=== PATIENT | female | born 1975 | race Caucasian/White ===

== ENCOUNTER → 2021-02-17 | Outpatient (CLI) | payer OTHER ==
[~2021-02-17] MED LIST: COVID-19 VACC, MRNA(MODERNA)/PF 100 MCG/0.5 ML VIAL IM ONE
== END ==
LOC: VACCPMC 13:36
DX: Z23 Encounter for immunization (principal); Z20.822 Contact with and (suspected) exposure to COVID-19
CPT/HCPCS: 91301

== ENCOUNTER → 2021-03-17 | Outpatient (CLI) | payer OTHER | END | disposition home or self-care (01) | LOC: VACCPMC 11:03 | DX: Z23 Encounter for immunization (principal); Z20.822 Contact with and (suspected) exposure to COVID-19 | CPT/HCPCS: 91301 ==

== ENCOUNTER 2022-04-24 08:00 | Outpatient (RCR) | payer BC, OTHER | END 2022-04-28 | LOC: PT 08:00 | PROVIDERS: ATTEND Internal Medicine | DX: I69.354 Hemiplegia and hemiparesis following cerebral infarction affecting left non-dominant side (principal); M62.81 Muscle weakness (generalized); R26.81 Unsteadiness on feet; Z91.81 History of falling; R29.3 Abnormal posture ==

== ENCOUNTER 2022-05-20 10:00 | Outpatient (RCR) | payer BC | END 2022-05-28 | LOC: OT 10:00 | PROVIDERS: ATTEND Internal Medicine | DX: I69.354 Hemiplegia and hemiparesis following cerebral infarction affecting left non-dominant side (principal); M62.81 Muscle weakness (generalized); R26.2 Difficulty in walking, not elsewhere classified; R29.3 Abnormal posture; Z91.81 History of falling | CPT/HCPCS: 97139 ==

== ENCOUNTER 2022-07-24 18:15 | Inpatient (IN) | payer BC ==
[~2022-07-24] VITALS: Ht 154.9 cm; Wt 85.3 kg
[2022-07-24] MEDS ORDERED: Morphine 2mg Syringe 2 MG/ML SYR IV NR (18:30)
[2022-07-24] MEDS ORDERED: DIPHTH/TETANUS/ACEL. PERTUSSIS 0.5 ML SYR IM ONE (18:30)
[2022-07-24] MEDS ORDERED: TETANUS/DIPHTHERIA TOX ADULT 0.5 ML SYR ONE (18:47)
[2022-07-24] MEDS ORDERED: ACETAMINOPHEN-1 EAC4 PO (19:49)
[2022-07-24] MEDS ORDERED: FENTANYL CITRATE/PF 100MCG/2 ML INJ IV ONE (20:00)
[2022-07-24] MEDS ORDERED: ONDANSETRON HCL INJ 2MG/ML 2ML 2 MG/ML VIAL ONE (20:14)
[2022-07-24] MEDS ORDERED: Morphine 4mg INJECTION 4 MG/ML INJ IV PRN (20:15)
[2022-07-24] MEDS ORDERED: ONDANSETRON HCL INJ 2MG/ML 2ML 2 MG/ML VIAL IV PRN (20:15)
[2022-07-24 21:01] LABS: BASOPHILS # (AUTO) 0.1 (0.0-0.1); BASOPHILS % 0.4 % (0.0-1.0); EOSINOPHILS % 0.2 % (0.0-6.0); HEMATOCRIT 38.8 % (34.2-44.1); HEMOGLOBIN 12.5 g/dL (12.0-16.0); MEAN CORPUSCULAR HEMOGLOBIN 29.4 pg (28-32); MEAN CORPUSCULAR HGB CONC 32.2 g/dL (31-35); MEAN CORPUSCULAR VOLUME 91.3 fL (81-99); MONOCYTES # (AUTO) 0.6 (0.2-0.8); MONOCYTES % 3.9 % (4.4-11.3); NEUTROPHILS # (AUTO) 14.3 (2.1-6.9); NEUTROPHILS % 88.8 % (38.7-80.0); PLATELET COUNT 178 x10e3/uL (140-360); RED BLOOD COUNT 4.25 x10e6/uL (3.6-5.1); RED CELL DISTRIBUTION WIDTH 12.5 % (11.7-14.4)
[2022-07-24 21:07] LABS: INR 0.88; PARTIAL THROMBOPLASTIN TIME 24.1 seconds (23.8-35.5); PROTHROMBIN TIME 12.8 seconds (11.9-14.5)
[2022-07-24 21:14] LABS: ANION GAP 18.6 mmol/L (8-16); CALCIUM 8.4 mg/dL (8.4-10.2); CREATININE, SERUM 0.74 mg/dL (0.57-1.11); POTASSIUM 3.6 mmol/L (3.5-5.1)
[2022-07-24] MEDS ORDERED: Morphine 4mg INJECTION 4 MG/ML INJ IV ONE (22:45)
[2022-07-24 22:50] VITALS: BP 136/87
[2022-07-24] MEDS ORDERED: APPLE CIDER VI600 MG PO (23:05)
[2022-07-24] MEDS ORDERED: VITAMIN D325 MCG PO (23:05)
[2022-07-24] MEDS ORDERED: COLLAGEN PEPTIDES PO (23:05)
[2022-07-24] MEDS ORDERED: PRISTIQ ER50 MG PO (23:05)
[2022-07-24] MEDS ORDERED: PROTONIX40 MG PO (23:05)
[2022-07-24] MEDS ORDERED: CARBAMAZEPINE200 MG PO (23:05)
[2022-07-24] MEDS ORDERED: BACLOFEN10 MG PO (23:05)
[2022-07-25] MEDS: HYDROMORPHONE 1MG/1ML INJ IV PRN ×7 (00:11→22:51)
[2022-07-25 04:00] VITALS: BP 146/99
[2022-07-25 08:30] LABS: BASOPHILS % 0.2 % (0.0-1.0); EOSINOPHILS % 0.4 % (0.0-6.0); HEMATOCRIT 38.9 % (34.2-44.1); HEMOGLOBIN 12.2 g/dL (12.0-16.0); LYMPHOCYTES # (AUTO) 1.4 (1.0-3.2); LYMPHOCYTES % 14.9 % (18.0-39.1); MEAN CORPUSCULAR HGB CONC 31.4 g/dL (31-35); MEAN CORPUSCULAR VOLUME 95.8 fL (81-99); MONOCYTES # (AUTO) 0.7 (0.2-0.8); MONOCYTES % 7.8 % (4.4-11.3); NEUTROPHILS % 76.6 % (38.7-80.0); PLATELET COUNT 310 x10e3/uL (140-360); RED BLOOD COUNT 4.06 x10e6/uL (3.6-5.1); RED CELL DISTRIBUTION WIDTH 12.5 % (11.7-14.4)
[2022-07-25 08:49] VITALS: BP 143/93
[2022-07-25 08:52] LABS: ALBUMIN 3.7 g/dL (3.5-5.0); ALBUMIN/GLOBULIN RATIO 0.9 (0.8-2.0); CALCIUM 9.1 mg/dL (8.4-10.2); CREATININE, SERUM 0.72 mg/dL (0.57-1.11)
[2022-07-25] MEDS: DESVENLAFAXINE SUCCINATE 50 MG TAB.SR.24H PO SCH ×2 (09:00→16:36)
[2022-07-25] MEDS: BACLOFEN 10 MG TAB PO SCH ×2 (09:00→16:37)
[2022-07-25] MEDS ORDERED: PANTOPRAZOLE SODIUM 40 MG SUSPDR.PKT PO SCH (09:00)
[2022-07-25] MEDS: CARBAMAZEPINE 200 MG TAB PO SCH ×2 (09:00→16:37)
[2022-07-25] MEDS ORDERED: AMLODIPINE PO (09:46)
[2022-07-25] MEDS ORDERED: [UNRECOGNIZED DRUG - OTHER] PO (09:46)
[2022-07-25] MEDS ORDERED: BENICAR20 MG PO (09:46)
[2022-07-25 12:02] VITALS: BP 126/95
[2022-07-25 15:30] VITALS: BP 140/88
[2022-07-25] MEDS: PANTOPRAZOLE SOD 40 MG TABEC PO SCH (16:37)
[2022-07-25 16:57] VITALS: BP 140/88
[2022-07-25 20:00] VITALS: BP 139/92
[2022-07-25] MEDS ORDERED: DEXTROSE 5%/0.45% SOD CHL 1,000 ML IV SCH (20:45)
[2022-07-26] VITALS (9 sets, daily range): BP systolic 110–160; BP diastolic 59–92
[2022-07-26] MEDS: HYDROMORPHONE 1MG/1ML INJ IV PRN ×2 (02:14→05:14)
[2022-07-26 04:52] LABS: BASOPHILS % 0.4 % (0.0-1.0); EOSINOPHILS # (AUTO) 0.1 (0.0-0.4); EOSINOPHILS % 1.8 % (0.0-6.0); HEMATOCRIT 38.7 % (34.2-44.1); HEMOGLOBIN 12.6 g/dL (12.0-16.0); LYMPHOCYTES # (AUTO) 1.3 (1.0-3.2); LYMPHOCYTES % 17.4 % (18.0-39.1); MEAN CORPUSCULAR HEMOGLOBIN 29.8 pg (28-32); MEAN CORPUSCULAR HGB CONC 32.6 g/dL (31-35); MEAN CORPUSCULAR VOLUME 91.5 fL (81-99); MONOCYTES # (AUTO) 0.6 (0.2-0.8); MONOCYTES % 8.7 % (4.4-11.3); NEUTROPHILS # (AUTO) 5.3 (2.1-6.9); NEUTROPHILS % 71.6 % (38.7-80.0); PLATELET COUNT 308 x10e3/uL (140-360); RED BLOOD COUNT 4.23 x10e6/uL (3.6-5.1); RED CELL DISTRIBUTION WIDTH 12.4 % (11.7-14.4)
[2022-07-26 05:12] LABS: ALBUMIN 3.6 g/dL (3.5-5.0); ALBUMIN/GLOBULIN RATIO 0.9 (0.8-2.0); ANION GAP 15.9 mmol/L (8-16); CALCIUM 8.8 mg/dL (8.4-10.2); CREATININE, SERUM 0.71 mg/dL (0.57-1.11); POTASSIUM 3.9 mmol/L (3.5-5.1)
[2022-07-26] MEDS: PANTOPRAZOLE SOD 40 MG TABEC PO SCH ×2 (09:00→17:05)
[2022-07-26] MEDS: BACLOFEN 10 MG TAB PO SCH ×2 (09:00→17:07)
[2022-07-26] MEDS: CARBAMAZEPINE 200 MG TAB PO SCH ×2 (09:00→17:08)
[2022-07-26] MEDS: DESVENLAFAXINE SUCCINATE 50 MG TAB.SR.24H PO SCH (09:00)
[2022-07-26] MEDS ORDERED: BUPIVACAINE HC 0.75% PF 10ML VIAL INJ ONE (09:13)
[2022-07-26] MEDS ORDERED: BUPIVACAINE HCL 0.25% 10ML MPF VIAL INJ ONE (09:15)
[2022-07-26] MEDS ORDERED: Vancomycin IV 500 MG ONE (09:56)
[2022-07-26] MEDS ORDERED: HYDROGEN PEROXIDE 120 ML BTL ONE (11:12)
[2022-07-26] MEDS ORDERED: Vancomycin IV 1 GM in SODIUM CHLORIDE 0.9% 250ML 250 ML IV ONE (11:30)
[2022-07-26] MEDS ORDERED: Morphine 4mg INJECTION 4 MG/ML INJ IV PRN (11:30)
[2022-07-26] MEDS ORDERED: KETOROLAC TROMETHAMINE 30 MG/ML VIAL ONE ×2 (11:46→13:44)
[2022-07-26] MEDS ORDERED: PROPOFOL IV EMULSION 10 MG/ML 20 ML VIAL ONE (13:44)
[2022-07-26] MEDS ORDERED: ONDANSETRON HCL INJ 2MG/ML 2ML 2 MG/ML VIAL ONE (13:44)
[2022-07-26] MEDS ORDERED: POVIDONE IODINE 0.05% 0.05 % ML PO ONE (13:44)
[2022-07-26] MEDS ORDERED: SEVOFLURANE INHAL SOLN 250 ML PEN BTL ONE (13:44)
[2022-07-26] MEDS ORDERED: DEXAMETHASONE SOD PHOS INJ 4 MG/ML SDV ONE (13:44)
[2022-07-26] MEDS ORDERED: ROCURONIUM BROMIDE 10 MG/ML 5ML VIAL IV ONE (13:44)
[2022-07-26] MEDS ORDERED: MIDAZOLAM HCL 2 MG/2 ML VIAL ONE (14:00)
[2022-07-26] MEDS ORDERED: Morphine 10mg syringe 10 MG/ML INJ ONE (14:00)
[2022-07-26] MEDS ORDERED: FENTANYL CITRATE/PF 100MCG/2 ML INJ ONE (14:00)
[2022-07-26] MEDS ORDERED: ENOXAPARIN 30 MG/0.3 ML SYR SC SCH (17:00)
[2022-07-26] MEDS: HYDROCODONE/APAP 10MG-325MG TAB PO PRN (17:06)
[2022-07-26] MEDS: KETOROLAC TROMETHAMINE 10 MG TAB PO PRN (19:58)
[2022-07-27] VITALS (7 sets, daily range): BP systolic 101–132; BP diastolic 42–105
[2022-07-27] MEDS: HYDROCODONE/APAP 10MG-325MG TAB PO PRN ×3 (00:07→13:19)
[2022-07-27 06:59] LABS: BASOPHILS % 0.3 % (0.0-1.0); EOSINOPHILS # (AUTO) 0.1 (0.0-0.4); EOSINOPHILS % 1.4 % (0.0-6.0); HEMATOCRIT 31.3 % (34.2-44.1); HEMOGLOBIN 10.1 g/dL (12.0-16.0); LYMPHOCYTES # (AUTO) 2.1 (1.0-3.2); LYMPHOCYTES % 26.1 % (18.0-39.1); MEAN CORPUSCULAR HEMOGLOBIN 30.2 pg (28-32); MEAN CORPUSCULAR HGB CONC 32.3 g/dL (31-35); MEAN CORPUSCULAR VOLUME 93.7 fL (81-99); MONOCYTES # (AUTO) 0.8 (0.2-0.8); MONOCYTES % 9.8 % (4.4-11.3); NEUTROPHILS # (AUTO) 4.9 (2.1-6.9); NEUTROPHILS % 61.9 % (38.7-80.0); PLATELET COUNT 254 x10e3/uL (140-360); RED BLOOD COUNT 3.34 x10e6/uL (3.6-5.1); RED CELL DISTRIBUTION WIDTH 12.5 % (11.7-14.4)
[2022-07-27 07:14] LABS: CALCIUM 8.4 mg/dL (8.4-10.2); CREATININE, SERUM 0.69 mg/dL (0.57-1.11)
[2022-07-27] MEDS: BACLOFEN 10 MG TAB PO SCH (08:19)
[2022-07-27] MEDS: DESVENLAFAXINE SUCCINATE 50 MG TAB.SR.24H PO SCH (08:20)
[2022-07-27] MEDS: CARBAMAZEPINE 200 MG TAB PO SCH (08:20)
[2022-07-27] MEDS: PANTOPRAZOLE SOD 40 MG TABEC PO SCH (08:20)
[2022-07-27] MEDS ORDERED: ASPIRIN 81 MG CHEW TAB PO SCH (09:00)
[2022-07-27] MEDS: KETOROLAC TROMETHAMINE 10 MG TAB PO PRN (10:25)
[2022-07-27] MEDS ORDERED: ONDANSETRON HCL 4 MG ORAL DISINTEGRATING TAB PO PRN (15:30)
== END 2022-07-27 18:03 | disposition home health service (06) | DRG 493 ==
LOC: ER 19:36 → ERHOLD 20:04 → MED/SURG 22:46 → OBSVTOIN 07-26 12:07
PROVIDERS: ADMIT Internal Medicine; ATTEND Internal Medicine
PROC: 0QSG04Z Reposition Right Tibia with Internal Fixation Device, Open Approach (ICD-10-PCS; 2022-07-26)
PROC: 0QSG04Z Reposition Right Tibia with Internal Fixation Device, Open Approach (ICD-10-PCS; 2022-07-26)
PROC: 0QSJ04Z Reposition Right Fibula with Internal Fixation Device, Open Approach (ICD-10-PCS; principal; 2022-07-26 08:13)
DX: S82.851A Displaced trimalleolar fracture of right lower leg, initial encounter for closed fracture (principal); I69.154 Hemiplegia and hemiparesis following nontraumatic intracerebral hemorrhage affecting left non-dominant side; I11.9 Hypertensive heart disease without heart failure; W17.89XA Other fall from one level to another, initial encounter; Y93.01 Activity, walking, marching and hiking; E66.9 Obesity, unspecified; K21.9 Gastro-esophageal reflux disease without esophagitis; Z68.35 Body mass index [BMI] 35.0-35.9, adult; Z82.49 Family history of ischemic heart disease and other diseases of the circulatory system; I69.198 Other sequelae of nontraumatic intracerebral hemorrhage; Z87.891 Personal history of nicotine dependence; Z20.822 Contact with and (suspected) exposure to COVID-19
CPT/HCPCS: 0223U; 36415; 71045; 76000; 80048; 80053; 85025; 85610; 85730; 86850; 86900; 90714; 94799; 99284; C1713; G0378; J1100; J1170; J1650; J1885; J2250; J2270; J2405; J3010; J3370

== ENCOUNTER → 2023-04-06 | Outpatient (CLI) | payer BC, MEDICARE ==
[~2023-04-06] MED LIST changes: +ACETAMINOPHEN-1 EAC4 PO; +AMLODIPINE PO; +APPLE CIDER VI600 MG PO; +BACLOFEN10 MG PO; +BENICAR20 MG PO; +CARBAMAZEPINE200 MG PO; +COLLAGEN PEPTIDES PO; -COVID-19 VACC, MRNA(MODERNA)/PF 100 MCG/0.5 ML VIAL IM ONE; +PRISTIQ ER50 MG PO; +PROTONIX40 MG PO; +VITAMIN D325 MCG PO; +[UNRECOGNIZED DRUG - OTHER] PO
== END ==
LOC: CT 15:01
PROVIDERS: ATTEND Internal Medicine
DX: I69.354 Hemiplegia and hemiparesis following cerebral infarction affecting left non-dominant side (principal); M54.81 Occipital neuralgia
CPT/HCPCS: 70450